=== PATIENT | male | born 2000 | race Caucasian/White ===

== ENCOUNTER → 2018-06-22 02:13 | Emergency (ER) | payer OTHER ==
[~2018-06-22 02:13] MED LIST: Azithromycin TAB* 250 MG PO ONE; NS 0.9% 1000 ML** 2,000 ML IV ONE
--- NOTE | 2018-06-22 02:59 | ED ---
HPI Febrile Illness - HPI Summary HPI Summary: A 18 y/o male presents to [facility] with a chief complaint of fever since 06/19/18. He reported a fever of 104 at home and so he came to the ED. At triage the patient rated his pain as a 0/10 in severity. He also reports cold sweats and cough with phlegm. He takes Asmanex for his Hx of reactive airway asthma. He took Tylenol and Advil at 01:00 06/22/18 which has alleviated his pain. At triage his temperature was 98.9. - History of Current Complaint Chief Complaint: EDFluSymptoms Hx Obtained From: Patient Onset/Duration: Started Days Ago, Still Present Timing: Constant, Lasting Days Temperature: 40 C - at home Initial Severity: Mild Current Severity: Mild Pain Intensity: 0 Pain Scale Used: 0-10 Numeric Aggravating Factors: Nothing Alleviating Factors: OTC Medicine Associated Signs and Symptoms: Cough, Diaphoresis - Allergy/Home Medications Allergies/Adverse Reactions: Allergies Allergy/AdvReac Type Severity Reaction Status Date / Time No Known Allergies Allergy Verified 06/22/18 02:19 PMH/Surg Hx/FS Hx/Imm Hx Respiratory History: Reports: Hx Asthma Sensory History: Denies: Hx Deafness Infectious Disease History: No Infectious Disease History: Denies: Traveled Outside the [place] in Last 30 Days - Family History Known Family History: Negative: Hypertension - Social History Occupation: Student Alcohol Use: None Hx Substance Use: No Substance Use Type: Reports: None Hx Tobacco Use: No Smoking Status (MU): Never Smoked Tobacco Review of Systems Positive: Fever - [employer] 104, in ED 98.9, Chills, Skin Diaphoresis Positive: Cough All Other Systems Reviewed And Are Negative: Yes Physical Exam - Summary Physical Exam Summary: Appearance: Well-appearing, Well-nourished, lying in bed comfortably, fever Skin: Warm, dry, no obvious rash Eyes: sclera anicteric, no conjunctival pallor ENT: mucous membranes moist, pharynx appears normal Neck: Supple, nontender Respiratory: Clear to auscultation, no signs of respiratory distress Cardiovascular: Tachycardia. Normal S1, S2. No murmurs. Normal distal pulses in tibial and radial bilaterally. Abdomen: Soft, nontender, normal active bowel sounds present Musculoskeletal: Normal, Strength/ROM Intact Neurological: A&Ox3, awake and alert, mentation is normal, speech is fluent and appropriate Psychiatric: affect is normal, does not appear anxious or depressed Triage Information Reviewed: Yes Vital Signs On Initial Exam: Initial Vitals Temp Pulse Resp BP Pulse Ox 98.9 F 118 20 154/87 97 06/22/18 02:16 06/22/18 02:16 06/22/18 02:16 06/22/18 02:16 06/22/18 02:16 Vital Signs Reviewed: Yes Diagnostics - Vital Signs Vital Signs Temp Pulse Resp BP Pulse Ox 06/22/18 02:16 98.9 F 118 20 154/87 97 - Laboratory Result Diagrams: 06/22/18 02:41 06/22/18 02:41 Lab Statement: Any lab studies that have been ordered have been reviewed, and results considered in the medical decision making process. - Radiology CXR Radiology Interpretation Completed By: ED Physician Summary of Radiographic Findings: Pneumonia in right lung. Infiltrate in right lung. Pending official imaging report. Course/Dx - Course Course Of Treatment: A 18 y/o male presents to [facility] with a chief complaint of fever since 06/19/18. He reported a fever of 104 at home and so he came to the ED. At triage the patient rated his pain as a 0/10 in severity. He also reports cold sweats and cough with phlegm. He takes Asmanex for his Hx of reactive airway asthma. He took Tylenol and Advil at 01:00 06/22/18 which has alleviated his pain. At triage his temperature was 98.9. The physical exam revealed tachycardia and a fever. In the ED course the patient was given Sodium Chloride IV. His CXR showed Pneumonia in right lung. Infiltrate in right lung. Bloodwork and chemistries obtained and are WNL. The patient tested negative for influenza A and influenza B. He will be discharged with a prescription for Zithromax. He is agreeable with this plan. - Diagnoses Provider Diagnoses: Pneumonia Discharge - Sign-Out/Discharge Documenting (check all that apply): Patient Departure - DC Patient Received Moderate/Deep Sedation with Procedure: No - Discharge Plan Condition: Good Disposition: HOME Prescriptions: Azithromycin TAB* [Zithromax TAB (Z-GERA) 250 mg #6 tabs] 250 mg PO DAILY #4 tab Patient Education Materials: Pneumonia (ED) Forms: *School Release Referrals: [facility] [Outside] - 3 Days (if not starting to improve) - Billing Disposition and Condition Condition: GOOD Disposition: Home - Attestation Statements Document Initiated by Maureen: Yes Documenting Scribe: Herbert Mckeon Provider For Whom Maureen is Documenting (Include Credential): Toni Jarrett MD Scribe Attestation: IHerbert, scribed for Toni Jarrett MD on 06/22/18 at 0620. Scribe Documentation Reviewed: Yes Provider Attestation: The documentation as recorded by the Herbert barnes accurately reflects the service I personally performed and the decisions made by me, Toni Jarrett MD Status of Scribe Document: Viewed
[2018-06-22 03:08] LABS: Hematocrit 45 % (42-52); Hemoglobin 15.8 g/dl (14.0-18.0); Mean Corpuscular HGB Conc 35 g/dl (31-36); Mean Corpuscular Hemoglobin 32 pg (27-31); Mean Corpuscular Volume 91 fL (80-94); Mean Platelet Volume 7.4 fL (7.4-10.4); Platelet Count 251 10^3/ul (150-450); Red Blood Count 4.98 10^6/ul (4.00-5.40); Red Cell Distribution Width 13 % (10.5-15); White Blood Count 9.9 10^3/ul (3.5-10.8)
[2018-06-22 03:13] LABS: ABS Basophils 0 10^3/ul (0-0.2); ABS Eosinophils 0 10^3/ul (0-0.6); ABS Lymphocytes 1.4 10^3/ul (1.0-4.8); ABS Monocytes 0.9 10^3/ul (0-0.8); ABS Neutrophils 7.3 10^3/ul (1.5-7.7); ABS Nucleated RBC 0 10^3/ul; Eosinophil % 0.1 %; Lymphocyte % 14.6 %; Nucleated Red Blood Cells % 0
[2018-06-22 03:23] LABS: Albumin 4.7 g/dL (3.2-5.2); Albumin/Globulin Ratio 1.6 (1-3); BUN/Creatinine Ratio 10.5 (8-20); Calcium 9.3 mg/dL (8.6-10.3); EGFR African American 122.3 (>60); EGFR Non-African American 101.1 (>60); Globulin 2.9 g/dL (2-4); Potassium 3.1 mmol/L (3.5-5.0); Total Bilirubin 0.6 mg/dL (0.2-1.0); Total Protein 7.6 g/dL (6.4-8.9)
[2018-06-22 03:27] LABS: Influenza A Molecular NEGATIVE (Negative); Influenza B Molecular NEGATIVE (Negative)
== END | disposition home or self-care (01) ==
LOC: ED 02:13
DX: J18.9 Pneumonia, unspecified organism (principal); R50.9 Fever, unspecified; R05 Cough
CPT/HCPCS: 36415; 71046; 80053; 83605; 85025; 87040; 96360; 99283; A9270-GY